=== PATIENT | female | born 2000 | race Caucasian/White ===

== ENCOUNTER 2021-06-05 20:01 | Emergency (ER) | payer OTHER, SELFPAY ==
[2021-06-05 20:03] VITALS: BP 117/71; PULSE 91; RESP 16; TEMP 36.1; O2SAT 98; BMI 36.3
[2021-06-05 20:33] LABS: Glucose Urine UA NEG (NEG); Leukocyte Esterase Urine TRACE (NEG); Nitrite Urine POS (NEG); Specific Gravity - Urine >= 1.030 (1.005-1.025); UACC Culture Trigger YES; Urine Blood 1+ (NEG); Urine Ketones 40 MG/DL (NEG); Urine Protein 1+ MG/DL (NEG-TRACE)
[2021-06-05 20:43] LABS: Appearance Urine HAZY; Color Urine YELLOW
[2021-06-05 21:01] LABS: Bacteria Urine 4+ /LPF; RBC Urine 0-2 /HPF (0); Squamous Epithelial Cell Urine 3+ /LPF
[2021-06-05 21:02] LABS: UPreg QC Valid YES; Urine Pregnancy NEGATIVE (NEGATIVE)
--- NOTE | 2021-06-05 22:11 | ED.NAVMDI ---
HPI - Nausea/Vomiting/Diarrhea General Chief complaint: Nausea/Vomiting/Diarrhea Stated complaint: nausea Time Seen by Provider: 06/05/21 22:09 Source: patient Mode of arrival: ambulatory Limitations: no limitations History of Present Illness HPI Narrative: Patient throwing up for last 2 days multiple times unable to take anything solid down also patient smoked cannabis, this has happened before also patient has increased anxiety no significant abdominal pain Related Data Previous Rx's Medication Instructions Recorded cefuroxime axetil 500 mg PO BID 7 Days #14 tab 06/05/21 lorazepam [Ativan] 1 mg PO BEDTIME PRN #10 tab 06/05/21 ondansetron 4 mg PO Q6-8H PRN #7 tab 06/05/21 Allergies Allergy/AdvReac Type Severity Reaction Status Date / Time No Known Allergies Allergy Verified 06/05/21 20:06 Review of Systems Review of Systems: Yes all other systems are reviewed and are negative PMFSH Past Medical History Medical History Anxiety Depression PTSD (post-traumatic stress disorder) Surgical History Previous section Social History Social History Advance Directives: No Advance Directives Information Provided: Yes Patient : No Physical Exam Vital Signs: Vital Signs: Last Vital Signs Temp 97.0 F 06/05/21 20:03 Pulse 91 06/05/21 20:03 Resp 16 06/05/21 20:03 BP 117/71 06/05/21 20:03 Pulse Ox 98 06/05/21 20:03 Body Mass Index 36.3 Appearance: Alert. Oriented X3. No acute distress. Anxious Eyes: PERRLA, No Nystagmus ENT: Pharynx normal. Oral Mucosa moist Neck: Normal inspection. Neck supple. CVS: Normal heart rate and rhythm. Pulses normal. Respiratory: No respiratory distress. Equal air entry bilateral, Abdomen: Soft and nontender. Bowel sounds are present, no mass palpable, no CVA tenderness Skin: Skin warm and dry. Normal skin color. Normal skin turgor. Extremities: No lower extremity edema. No calf tenderness Neuro: Oriented X 3. MDM - Nausea/Vomiting/Diarrhea MDM Narrative Medical decision making narrative: Patient taking p.o. fluids after Zofran will discharge her home on Ceftin and Zofran advised not to smoke marijuana Lab Data Attestation: I reviewed the patient's lab results. Labs: Lab Results 06/05/21 06/05/21 Range/Units 20:13 20:13 Urine Color YELLOW Urine Appearance HAZY Urine pH 6.0 (5.0-8.0) Ur Specific [place] >= 1.030 H (1.005-1.025) Urine Protein 1+ H (NEG-TRACE) MG/DL Urine Glucose (UA) NEG (NEG) MG/DL Urine Ketones 40 (NEG) MG/DL Urine Blood 1+ H (NEG) Urine Nitrite POS H (NEG) Ur Leukocyte Esterase TRACE H (NEG) Urine RBC 0-2 (0) /HPF Urine WBC 5-9 H (0-4) /HPF Ur Squamous Epith Cells 3+ /LPF Urine Bacteria 4+ /LPF Urine Test NEGATIVE (NEGATIVE) Discharge Plan Discharge Clinical Impression: Cannabinoid hyperemesis syndrome UTI (urinary tract infection) Qualifiers: Urinary tract infection type: acute cystitis Hematuria presence: without hematuria Qualified Code(s): N30.00 - Acute cystitis without hematuria Patient Disposition: Home, Self-Care Instructions: Urinary Tract Infection in Women (ED), Cannabis Abuse (ED) Additional Instructions: Drink plenty of fluid Stop using cannabis take antibiotic for urinary tract infection and medication for anxiety Prescriptions: New cefuroxime axetil 500 mg tablet 500 mg PO BID 7 Days Qty: 14 RF: 0 ondansetron 4 mg tablet,disintegrating 4 mg PO Q6-8H PRN (Reason: nausea and vomiting) Qty: 7 RF: 0 lorazepam [Ativan] 1 mg tablet 1 mg PO BEDTIME PRN (Reason: anxiety) Qty: 10 RF: 0
== END 2021-06-05 23:58 | disposition home or self-care (01) ==
PROVIDERS: Emergency Provider Internal Medicine
DX: R11.2 Nausea with vomiting, unspecified (principal); F12.90 Cannabis use, unspecified, uncomplicated; N30.00 Acute cystitis without hematuria
CPT/HCPCS: 81001; 81003; 81025; 87086; 87088; 87186; 99283

== ENCOUNTER 2021-07-06 14:05 | Outpatient (REF) | payer OTHER, SELFPAY ==
--- NOTE | ~2021-07-06 | XR_ITS ---
EXAMINATION: CHEST AND RIGHT KNEE. CLINICAL INFORMATION: Chest pain. COMPARISON: None TECHNIQUE: 2 views chest. 4 views right knee. FINDINGS: CHEST: The lungs are expanded and clear of acute process. Heart size and pulmonary vascularity is normal. No gross bony abnormality seen. RIGHT KNEE: There is no visible acute fracture, dislocation or subluxation seen. No bony erosive changes seen. No abnormal joint effusion. XR/XR knee RT 4V IMPRESSION: Unremarkable chest exam. Unremarkable right knee exam.
--- NOTE | ~2021-07-06 | XR_ITS ---
EXAMINATION: CHEST AND RIGHT KNEE. CLINICAL INFORMATION: Chest pain. COMPARISON: None TECHNIQUE: 2 views chest. 4 views right knee. FINDINGS: CHEST: The lungs are expanded and clear of acute process. Heart size and pulmonary vascularity is normal. No gross bony abnormality seen. RIGHT KNEE: There is no visible acute fracture, dislocation or subluxation seen. No bony erosive changes seen. No abnormal joint effusion. XR/XR chest 2V IMPRESSION: Unremarkable chest exam. Unremarkable right knee exam.
== END 2021-07-06 14:06 | disposition home or self-care (01) ==
LOC: HO.HMGCX 14:05
PROVIDERS: Visit Provider Hospitalist
DX: R07.9 Chest pain, unspecified (principal); M25.561 Pain in right knee
CPT/HCPCS: 71046; 73564